=== PATIENT | female | born 1950 | race Caucasian/White ===

== ENCOUNTER 2018-04-16 10:22 | Emergency (ER) | payer OTHER ==
[2018-04-16] MEDS ORDERED: Naproxen 550 mg Tab PO STA (11:14)
--- NOTE | 2018-04-16 11:17 | C.PDOC ---
History Of Present Illness 67 year old female presents to the ED for evaluation of right head pain and right ear pain s/p injury sustained 1 week ago. Patient reports she fell at work, was on the floor for 5 minutes, and could not see out of the right eye which has since resolved. 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 Denies LOC, taking medication for the head pain, fever, nausea, vomiting, and any other associated symptoms. Time Seen by Provider: 04/16/18 10:52 Chief Complaint (Nursing): Headache History Per: Patient History/Exam Limitations: no limitations Onset/Duration Of Symptoms: Days Current Symptoms Are (Timing): Still Present Past Medical History Reviewed: Historical Data, Nursing Documentation, Vital Signs Vital Signs: Last Vital Signs Temp 98 F 04/16/18 10:33 Pulse 69 04/16/18 10:33 Resp 18 04/16/18 10:33 BP 144/77 04/16/18 10:33 Pulse Ox 98 04/16/18 10:33 - Medical History PMH: Arthritis Family History: States: Unknown Family Hx - Social History Hx Tobacco Use: No Hx Alcohol Use: No Hx Substance Use: No - Immunization History Hx Tetanus Toxoid Vaccination: No Hx Influenza Vaccination: No Hx Pneumococcal Vaccination: No Review Of Systems Constitutional: Positive for: Other (right head pain.). Negative for: Fever ENT: Positive for: Ear Pain (right. ) Gastrointestinal: Negative for: Nausea, Vomiting Physical Exam - Physical Exam Appears: Non-toxic Skin: Normal Color, Warm, Dry Head: Normacephalic, No Abrasion, No Laceration, Other (tenderness to the right yarsanism.) Eye(s): right: Other (Photophobia.) Ear(s): Left: Normal, Bilateral: Other (tm intact. no serum. ) Neck: Paracervical Tenderness (to the right side. ), Other Neurological/Psych: Oriented x3, Normal Speech, Normal Motor, Normal Sensation Gait: Steady ED Course And Treatment O2 Sat by Pulse Oximetry: 98 (RA) Pulse Ox Interpretation: Normal Progress Note: Patient given Naproxen and Cyclobenzaprine. Patient stable for discharge home. Prescribed Naproxen and Cyclobenzaprine. Disposition Counseled Patient/Family Regarding: Diagnosis, Need For Followup, Rx Given - Disposition Referrals: [facility] at [facility] [Outside] Disposition: HOME/ ROUTINE Disposition Time: 11:25 Condition: STABLE Additional Instructions: FOLLOW UP WITH YOUR DOCTOR/CLINIC IN 1-2 DAYS USE MEDICATIONS NEEDED FOR PAIN RETURN TO EMERGENCY ROOM IF SYMPTOMS WORSEN SEGUIR CON AVILEZ MDICO / CLNICA EN 1-2 WALKER UTILICE MEDICAMENTOS ARIADNA SE NECESITE PARA EL DOLOR VUELVA A LA AZEEM DE EMERGENCIA SI LOS SNTOMAS SE ROLLINS PROBLEMAS Prescriptions: Cyclobenzaprine [Flexeril] 10 mg PO BID PRN #15 tab PRN Reason: Muscle Spasm Naproxen 375 mg PO BID PRN #20 tablet PRN Reason: pain Instructions: Closed Head Injury (DC), Headache, Adult (DC) Forms: [employer] (Slovenian) Print Language: GERMAN - POA Present On Arrival: Falls Or Trauma - Clinical Impression Clinical Impression: Right-sided headache, Closed head injury - Scribe Statement The provider has reviewed the documentation as recorded by the Scribe (Amanda Mderano) Provider Attestation: All medical record entries made by the Scribe were at my direction and personally dictated by me. I have reviewed the chart and agree that the record accurately reflects my personal performance of the history, physical exam, medical decision making, and the department course for this patient. I have also personally directed, reviewed, and agree with the discharge instructions and disposition.
[2018-04-16] MEDS ORDERED: Naproxen 550 mg Tab PO ONE (11:30)
[2018-04-16 11:31] VITALS: BP 141/70; PULSE 68; RESP 16; TEMP 98.2
[2018-04-16 13:39] VITALS: O2SAT 98
== END 2018-04-16 11:30 | disposition home or self-care (01) ==
LOC: C.ER 10:22
DX: S09.90XA Unspecified injury of head, initial encounter (principal); W19.XXXA Unspecified fall, initial encounter; Y99.0 Civilian activity done for income or pay; R51 Headache

== ENCOUNTER 2018-05-19 08:45 | Emergency (ER) | payer OTHER ==
[2018-05-19] MEDS ORDERED: Sodium Chloride 0.9% 1,000 ML IV ONE (09:38)
[2018-05-19 10:07] LABS: BASO # 0.1 K/uL (0.0-0.2); BASO % 0.6 % (0.0-2.0); EOS % 0.1 % (0.0-4.0); HEMOGLOBIN 14.7 g/dL (11.0-16.0); LYMPH # 0.7 K/uL (1.0-4.3); LYMPH % 8.2 % (20.0-40.0); MEAN CELL VOLUME 84.9 fL (81.0-99.0); MEAN CORPUSCULAR HGB CONC 34.2 g/dL (33.0-37.0); MEAN PLATELET VOLUME 9.5 fL (7.2-11.7); MONO # 0.4 K/uL (0.0-0.8); MONO % 5.2 % (0.0-10.0); NEUT # 6.9 K/uL (1.8-7.0); NEUT % 85.9 % (50.0-75.0); NRBC % 0.1 % (0.0-2.0); PLATELET COUNT 150 K/uL (130-400); RBC 5.07 Mil/uL (3.80-5.20); RED CELL DISTRIBUTION WIDTH 12.9 % (11.5-14.5)
--- NOTE | 2018-05-19 10:12 | C.PDOC ---
History Of Present Illness 67 years old female with no significant PMHx comes in for evaluation of cold symptoms that began few days ago associated with low grade fever, dry cough and chest congestion. Patient also reports that yesterday she developed epigastric pain associated with few episodes of non bilious/non bloody vomiting. Otherwise, pt denies fever, chills, headache, dizziness, drooling, dysphagia, dyspnea, CP, palpitation, diaphoresis, hematemesis, melena, diarrhea, back pain, UTI sx, denies recent travel or known sick contact. Ambulate to ED for evaluation, not in any apparent distress. Time Seen by Provider: 05/19/18 09:37 Chief Complaint (Nursing): Chest Pain History Per: Patient History/Exam Limitations: no limitations Onset/Duration Of Symptoms: Hrs Current Symptoms Are (Timing): Still Present Location Of Pain/Discomfort: Epigastric Radiation Of Pain To:: None Associated Symptoms: Vomiting. denies: Nausea, Diarrhea Exacerbating Factors: Cough Alleviating Factors: None Last Bowel Movement: Today Recent travel outside of the [place] States: No Abnormal Vaginal Bleeding: No Past Medical History Reviewed: Historical Data, Nursing Documentation, Vital Signs Vital Signs: Last Vital Signs Temp 99.0 F 05/19/18 09:03 Pulse 96 H 05/19/18 09:03 Resp 20 05/19/18 09:03 BP 132/78 05/19/18 09:03 Pulse Ox 98 05/19/18 09:03 - Medical History PMH: Arthritis Family History: States: Unknown Family Hx - Social History Hx Tobacco Use: No Hx Alcohol Use: No Hx Substance Use: No - Immunization History Hx Tetanus Toxoid Vaccination: No Hx Influenza Vaccination: No Hx Pneumococcal Vaccination: No Review Of Systems Constitutional: Positive for: Other (Cold symptoms ). Negative for: Fever Cardiovascular: Positive for: Other (Chest congestion ). Negative for: P alpitations Respiratory: Positive for: Cough (Dry ) Gastrointestinal: Positive for: Vomiting (non bilious/non bloody), Abdominal Pain (Epigastric ). Negative for: Diarrhea Skin: Negative for: Rash Neurological: Negative for: Weakness, Numbness, Headache, Dizziness Physical Exam - Physical Exam Appears: Well, Non-toxic, No Acute Distress Skin: Normal Color, Warm, Dry, No Rash Head: Normacephalic Eye(s): bilateral: PERRL Ear(s): Bilateral: Normal Nose: Discharge (B/L nasal congestion) Oral Mucosa: Moist Throat: No Erythema, No Exudate, No Drooling Neck: Trachea Midline, Supple Chest: Symmetrical, No Tenderness Cardiovascular: Rhythm Regular, No Murmur, No JVD Respiratory: No Decreased Breath Sounds, No Accessory Muscle Use, No Rales, No Rhonchi, No Stridor, No Wheezing Gastrointestinal/Abdominal: Soft, Tenderness (Mild epigastric ), No Distention, No Guarding, No Rebound Extremity: Normal ROM, No Deformity, No Swelling Extremity: Bilateral: Atraumatic, Normal Color And Temperature, Normal ROM Pulses: Left Radial: Normal, Right Radial: Normal Neurological/Psych: Oriented x3, Normal Speech Gait: Steady ED Course And Treatment - Laboratory Results Result Diagrams: 05/19/18 10:03 05/19/18 10:03 Lab Interpretation: No Acute Changes ECG: Interpreted By Me, Viewed By Me ECG Rhythm: Sinus Rhythm ECG Interpretation: Normal Interpretation Of ECG: Sinus tachy@101/min, NAD, no acute T wave or ST-T changes O2 Sat by Pulse Oximetry: 98 (RA) Pulse Ox Interpretation: Normal - Radiology CXR: Interpreted by Me, Viewed By Me CXR Interpretation: Yes: No Acute Disease Progress Note: Administered IV Fluids, Protonix, Pepcid, Toradol, and Zofran. Ordered EKG, Blood work, CXR, Flu AB Swab, and Urinalsysis. Pt was OBS in ED for 3 hours and reports moderate improvement in sx. On re-eval, pt is afebrile, hemodynamicay stable. Non-toxic, tolerate PO well in ED. PulsEOx 98% RA. Neck: SUpple, (-) meningeal sign. ENT: No acute findings. Lungs: CTA B/L, BS equal B/L. CVS: (+)S1S2, reg. Abd: Benign, (-) guarding, (-) rebound, (-) localized tenderness. Neurologicaly inatct. Blood work review and appears without acute abnormalities, no acute leukocytosis, no evidece of dehydration. Influenza A (+). EKG, Troponin (-). CXR- normal study. Pt has clinical fi ndings c/w Influenza A illness. Pt advised on course of ds,. ref. to F/U with PMD in 2-3 days for re-eval. return if any new chnages. Disposition Counseled Patient/Family Regarding: Studies Performed, Diagnosis, Need For Followup, Rx Given - Disposition Referrals: [facility] at [facility] [Outside] Disposition: HOME/ ROUTINE Disposition Time: 12:00 Condition: STABLE Additional Instructions: Encourage fluids Take medication as prescribed Follow up with PMD in 2-3 days for re-evaluation. return to ED if any worsening or new changes. 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 - Scribe Statement The provider has reviewed the documentation as recorded by the Scribjaron Nielson All medical record entries made by the Rubenibjaron were at my direction and personally dictated by me. I have reviewed the chart and agree that the record accurately reflects my personal performance of the history, physical exam, medical decision making, and the department course for this patient. I have also personally directed, reviewed, and agree with the discharge instructions and disposition.
[2018-05-19 10:15] LABS: INR 1.2; PROTHROMBIN TIME 13.1 SECONDS (9.7-12.2)
[2018-05-19 10:22] LABS: ALB/GLOB RATIO 1.2 (1.0-2.1)
[2018-05-19] MEDS ORDERED: Sodium Chloride 0.9% 1,000 ML ONE (10:37)
[2018-05-19 10:38] LABS: ALBUMIN 4.1 g/dL (3.5-5.0); ALT/SGPT 38 U/L (9-52); AST/SGOT 42 U/L (14-36); BLOOD UREA NITROGEN 18 mg/dL (7-17); CALCIUM 8.1 mg/dl (8.6-10.4); GFR NON-AFRICAN AMERICAN > 60; LIPASE 99 U/L (23-300)
[2018-05-19 10:49] LABS: BANDS 2 % (0-2); LYMPHOCYTE 8 % (20-40); MONOCYTE 5 % (0-10); NEUTROPHIL 85 % (50-75); PLATELET ESTIMATE NORMAL (NORMAL); TOTAL CELLS COUNTED 100
[2018-05-19 10:50] LABS: ANISOCYTOSIS SLIGHT; LARGE PLATELETS PRESENT
[2018-05-19 10:59] LABS: SQUAMOUS EPITHIAL 11 /hpf (0-5); URINE BACTERIA RARE (<OCC); URINE BILIRUBIN NEGATIVE (NEGATIVE); URINE BLOOD 1+ (NEGATIVE); URINE CLARITY Hazy (Clear); URINE COLOR Yellow (YELLOW); URINE GLUCOSE (UA) NORMAL (Normal); URINE LEUKOCYTE ESTERASE 1+ Leu/uL (Negative); URINE PROTEIN NEGATIVE (NEGATIVE); URINE UROBILINOGEN NORMAL mg/dL (0.2-1.0)
--- NOTE | 2018-05-19 11:41 | RAD ---
Chest x-ray two views HISTORY: Chest pain. COMPARISON: None available FINDINGS: Mild venous congestion. Small nodular density seen at the lateral aspect of the right mid lung zone which may represent a small calcified granuloma versus nodule. Continued interval follow-up may be helpful. Small nodular density at the left costophrenic angle may represent confluence of shadows with ribs and vessels. Atherosclerotic calcification at the aortic knob. Biapical pleural thickening with upper lobe granulomatous changes. Tortuous aorta. Degenerative changes in the spine and shoulders. IMPRESSION: Mild venous congestion. Small nodular density seen at the lateral aspect of the right mid lung zone which may represent a small calcified granuloma versus nodule. Continued interval follow-up may be helpful. Small nodular density at the left costophrenic angle may represent confluence of shadows with ribs and vessels. Atherosclerotic calcification at the aortic knob. Biapical pleural thickening with upper lobe granulomatous changes. Tortuous aorta.
[2018-05-19] MEDS ORDERED: cefTRIAXone 1 gm 1 GM/100 ML BAG IVPB ONE (11:46)
[2018-05-19 12:33] VITALS: BP 112/63; PULSE 90; RESP 18; TEMP 100.4; O2SAT 97
--- NOTE | 2018-05-21 23:03 | CARD ---
APPROVED REPORT Date of service: 05/19/2018 EKG Measurement Heart [id number] <Conclusion> Sinus tachycardia Otherwise normal ECG
== END 2018-05-19 12:40 | disposition home or self-care (01) ==
LOC: C.ER 08:45
DX: J09.X2 Influenza due to identified novel influenza A virus with other respiratory manifestations (principal)
CPT/HCPCS: 71046; 80053; 81001; 83690; 84484; 85025; 85610; 85730; 87804; 93005; 96361; 96365; 96375; 99285; C9113; J0696; J1885; J2405; J7030

== ENCOUNTER 2018-08-19 18:30 | Emergency (ER) | payer OTHER ==
[2018-08-19 18:36] VITALS: TEMP 97.7
--- NOTE | 2018-08-19 19:21 | C.PDOC ---
History Of Present Illness 68 year old female presents to the ED complaining of right ear pain for 2 weeks. Reports loss of hearing from right ear for one day which prompted ED visit. Denies any fever, chills, headache, sore throat, congestion or discharge from ear. States she has been taking OTC Tylenol for pain. Reports she has not received an annual checkup in 10 years because she does not have a PMD. Time Seen by Provider: 08/19/18 18:44 Chief Complaint (Nursing): ENT Problem History Per: Patient History/Exam Limitations: None Onset/Duration Of Symptoms: Days Current Symptoms Are (Timing): Still Present Quality (Ear): Pain W/Touch. denies: Discharge Past Medical History Reviewed: Historical Data, Nursing Documentation, Vital Signs Vital Signs: Last Vital Signs Temp 97.7 F 08/19/18 18:33 Pulse 73 08/19/18 18:33 Resp 20 08/19/18 18:33 BP 149/78 08/19/18 18:33 Pulse Ox 100 08/19/18 18:33 - Medical History PMH: Arthritis Other Surgeries: Hx of surgeries Family History: States: No Known Family Hx - Social History Hx Tobacco Use: No Hx Alcohol Use: No Hx Substance Use: No - Immunization History Hx Tetanus Toxoid Vaccination: No Hx Influenza Vaccination: No Hx Pneumococcal Vaccination: No Review Of Systems Constitutional: Negative for: Fever, Chills ENT: Positive for: Ear Pain (right). Negative for: Ear Discharge, Nose Congestion, Throat Pain Neurological: Negative for: Headache Physical Exam - Physical Exam Appears: Non-toxic, No Acute Distress Skin: Warm, Dry, No Rash Head: Normacephalic Eye(s): bilateral: Normal Inspection Ear(s): Left: Normal, Right: TM Erythema, Other (Mastoid tenderness, poorly visualized wax) Nose: Normal Oral Mucosa: Moist Neck: Supple Chest: Symmetrical Cardiovascular: Rhythm Regular Respiratory: No Rales, No Rhonchi, No Wheezing, Other (CTA B/L) Neurological/Psych: Oriented x3, Normal Speech Gait: Steady ED Course And Treatment - Laboratory Results Result Diagrams: 08/19/18 19:48 08/19/18 19:48 O2 Sat by Pulse Oximetry: 100 (RA) Pulse Ox Interpretation: Normal - CT Scan/US CT facial bones Other Rad Studies (CT/US): Read By Radiologist, Radiology Report Reviewed CT/US Interpretation: Impression: Symmetric appearance to the mastoid air cells. No air-fluid level or bone erosion or bone destruction. Mild inflammatory changes within the ethmoid sinuses and right sphenoid sinus. Small low-density infarct within the right basal ganglia and internal capsule of the brain. Cl inical correlation advised. Medical Decision Making Medical Decision Making: Plan - CT mastoids - Bloodwork Disposition Counseled Patient/Family Regarding: Studies Performed, Diagnosis, Need For Followup, Rx Given - Disposition Referrals: [facility] at [facility] [Outside] Disposition: HOME/ ROUTINE Disposition Time: 20:35 Condition: GOOD Additional Instructions: [place] Tylenol o Motrin para el dolor. Reynaldo antibiticos hasta completar. Seguimiento en keyshaa levy; llame maana para blake heide. No ponga nada en las orejas. 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 - Scribe Statement The provider has reviewed the documentation as recorded by the Scribe Tracy Guajardo All medical record entries made by the Scribe were at my direction and personally dictated by me. I have reviewed the chart and agree that the record accurately reflects my personal performance of the history, physical exam, medi sheryl decision making, and the department course for this patient. I have also personally directed, reviewed, and agree with the discharge instructions and disposition.
[2018-08-19 19:55] LABS: BASO # 0.1 K/uL (0.0-0.2); BASO % 0.7 % (0.0-2.0); EOS # 0.2 K/uL (0.0-0.7); EOS % 2.9 % (0.0-4.0); LYMPH # 3.1 K/uL (1.0-4.3); LYMPH % 39.6 % (20.0-40.0); MEAN PLATELET VOLUME 9.9 fL (7.2-11.7); MONO # 0.6 K/uL (0.0-0.8); MONO % 7.1 % (0.0-10.0); NEUT # 3.9 K/uL (1.8-7.0); NEUT % 49.7 % (50.0-75.0); NRBC % 0.1 % (0.0-2.0); RED CELL DISTRIBUTION WIDTH 13.1 % (11.5-14.5); WHITE BLOOD COUNT 7.9 K/uL (4.8-10.8)
[2018-08-19 20:07] LABS: ALB/GLOB RATIO 1.3 (1.0-2.1); ALBUMIN 4.5 g/dL (3.5-5.0); ALT/SGPT 20 U/L (9-52); AST/SGOT 26 U/L (14-36); BLOOD UREA NITROGEN 17 mg/dL (7-17); GFR NON-AFRICAN AMERICAN > 60
[2018-08-19 21:09] VITALS: BP 139/85; PULSE 68; RESP 18; O2SAT 97
--- NOTE | 2018-08-20 15:04 | CT ---
Date of service: 08/19/2018 PROCEDURE: CT OF THE TEMPORAL BONES WITHOUT CONTRAST HISTORY: Right ear and mastoid pain COMPARISON: None available. TECHNIQUE: High resolution axial images of the temporal bones were obtained. Coronal and sagittal reformats were generated. Radiation dose: Total exam DLP = 652.34 mGy-cm. This CT exam was performed using one or more of the following dose reduction techniques: Automated exposure control, adjustment of the mA and/or kV according to patient size, and/or use of iterative reconstruction technique. FINDINGS: RIGHT TEMPORAL BONE: RIGHT MIDDLE EAR: Normal. RIGHT INNER EAR: Cochlea: Normal. Semicircular canals: Normal. RIGHT MASTOID AIR CELLS: Normal. RIGHT INTERNAL AUDITORY CANAL: Normal. RIGHT EXTERNAL AUDITORY CANAL: Normal. RIGHT VESTIBULAR AND COCHLEAR AQUEDUCT: Normal. OTHER FINDINGS: There is fluid and aerosolized secretions in the right cysts sphenoid chamber. LEFT TEMPORAL BONE: LEFT MIDDLE EAR: Normal. LEFT INNER EAR: Cochlea: Normal. Semicircular canals: Normal. LEFT MASTOID AIR CELLS: Normal. LEFT INTERNAL AUDITORY CANAL: Normal. LEFT EXTERNAL AUDITORY CANAL: Normal. LEFT VESTIBULAR AND COCHLEAR AQUEDUCTS: Normal. OTHER FINDINGS: There are old lacunar infarctions in the right caudate head, anterior limb of internal capsule and anterior basal ganglia with volume loss and ex vacuo dilatation of the right frontal horn. There is mild age-related global parenchymal volume loss. IMPRESSION: 1. Normal non contrast enhanced CT of the temporal bones. No evidence for acute right mastoiditis. 2. Fluid and aerosolized secretions in the right sphenoid chamber may represent acute sinusitis in the appropriate clinical setting. 3. 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 A preliminary report was provided by [employer].
== END 2018-08-19 21:09 | disposition home or self-care (01) ==
LOC: C.ER 18:30
DX: H92.01 Otalgia, right ear (principal)

== ENCOUNTER 2018-09-11 19:55 | Emergency (ER) | payer OTHER ==
[2018-09-11 20:37] VITALS: BP 130/80; PULSE 72; RESP 20; TEMP 98.5; O2SAT 99
--- NOTE | 2018-09-11 21:53 | C.PDOC ---
History Of Present Illness 68 year old female presents complaining of a painful lump to her anus for the past 2 weeks. Patient states 2 weeks ago she was started on antibiotics which caused her to have multiple episodes of diarrhea. She reports pain and occasional blood when wiping, pain with sitting and occasional pain with walking. Denies fever, abdominal pain, back pain, bloody stools, or urinary complaints. Time Seen by Provider: 09/11/18 20:48 Chief Complaint (Nursing): Female Genitourinary History Per: Patient History/Exam Limitations: no limitations Onset/Duration Of Symptoms: Days (2 weeks) Current Symptoms Are (Timing): Still Present Quality Of Discomfort: Unable To Describe Associated Symptoms: denies: Fever, Chills, Back Pain, Urinary Symptoms, Other (Bloody stools) Alleviating Factors: None Recent travel outside of the [place]: No Past Medical History Reviewed: Historical Data, Nursing Documentation, Vital Signs Vital Signs: Last Vital Signs Temp 98.5 F 09/11/18 20:32 Pulse 72 09/11/18 20:32 Resp 20 09/11/18 20:32 BP 130/80 09/11/18 20:32 Pulse Ox 99 09/11/18 20:32 - Medical History PMH: Arthritis Family History: States: No Known Family Hx - Social History Hx Tobacco Use: No Hx Alcohol Use: No Hx Substance Use: No - Immunization History Hx Tetanus Toxoid Vaccination: No Hx Influenza Vaccination: No Hx Pneumococcal Vaccination: No Review Of Systems Constitutional: Negative for: Fever, Chills Gastrointestinal: Positive for: Other (Lump to anus. No bloody stools.) Musculoskeletal: Negative for: Back Pain Physical Exam - Physical Exam Appears: Non-toxic Skin: Warm, Dry Head: Atraumatic, Normacephalic Oral Mucosa: Moist Gastrointestinal/Abdominal: Soft, No Tenderness Rectal: Hemorrhoids (Two at 6 o'clock position) Back: No CVA Tenderness, No Vertebral Tenderness, No Paraspinal Tenderness Neurological/Psych: Oriented x3, Normal Speech ED Course And Treatment O2 Sat by Pulse Oximetry: 99 (room air) Pulse Ox Interpretation: Normal Medical Decision Making Medical Decision Making: Colace applied. Patient resting comfortably in no acute distress, vitals are stable, will discharge home with Rx and instructions to follow up with PMD. Disposition - Disposition Referrals: Cailin Dunaway MD [Staff Provider] - Disposition: HOME/ ROUTINE Disposition Time: 21:54 Condition: GOOD Additional Instructions: Follow up with the medical doctor within 1-2 days. Return if worsened. 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 - Scribe Statement The provider has reviewed the documentation as recorded by the Scribjaron Govea All medical record entries made by the Rubenibjaron were at my direction and personally dictated by me. I have reviewed the chart and agree that the record accurately reflects my personal performance of the history, physical exam, medical decision making, and the department course for this patient. I have also personally directed, reviewed, and agree with the discharge instructions and disposition.
== END 2018-09-11 22:17 | disposition home or self-care (01) ==
LOC: C.ER 19:55
DX: K64.9 Unspecified hemorrhoids (principal)

== ENCOUNTER 2018-09-18 09:50 | Outpatient (CLI) | payer OTHER | END 2018-09-18 09:51 | disposition home or self-care (01) | LOC: C.LAB 09:50 | DX: H91.90 Unspecified hearing loss, unspecified ear (principal) ==

== ENCOUNTER 2018-09-28 14:11 | Outpatient (CLI) | payer OTHER | END 2018-09-28 14:12 | disposition home or self-care (01) | LOC: C.MRIC 14:11 ==